=== PATIENT | male | born 1950 | race Caucasian/White ===

== ENCOUNTER 2017-04-20 10:28 | Emergency (ER) | payer MEDICARE, OTHER ==
[2017-04-20 10:53] LABS: Hematocrit 45.6 % (42.0-52.0); Mean Cell Volume 81.7 fl (78-100); Mean Corpuscular Hemoglobin 28.7 pg (27-31); Mean Corpuscular Hgb Conc 35.1 g/dl (32-36); Mean Platelet Volume 9.1 fl (6.0-9.5); Neutrophil # 3.7 K/mm3 (1.3-6.0); Neutrophil % 67.7 % (42-75.0); Platelet Count 206 K/mm3 (150-450); Red Blood Count 5.58 M/mm3 (4.7-6.0); Red Cell Distribution Width 11.9 % (11.5-14.0); White Blood Count 5.5 K/mm3 (4.0-10.5)
[2017-04-20 11:06] LABS: Anion Gap 12.9 mmol/L (6.8-13.8); BUN/Creatinine Ratio 19.6 (9.0-21.6); Bilirubin, Total 0.7 mg/dL (0.0-1.1); Ca. Corrected For Albumin 8.5 mg/dL (8.4-10.2); Calcium * 8.8 mg/dL (7.9-10.9); Carbon Dioxide 26.9 mmol/L (24-32.6); Potassium 3.8 mmol/L (3.4-4.6); Total Protein 7.5 gm/dL (6.2-8.2)
[2017-04-20 11:37] VITALS: BP 167/77
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
== END 2017-04-20 12:10 | disposition home or self-care (01) ==
LOC: ER 10:28
DX: S80.212A Abrasion, left knee, initial encounter (principal); V49.60XA Unspecified car occupant injured in collision with unspecified motor vehicles in traffic accident, initial encounter; Y92.410 Unspecified street and highway as the place of occurrence of the external cause; S60.812A Abrasion of left wrist, initial encounter; S60.811A Abrasion of right wrist, initial encounter; E78.5 Hyperlipidemia, unspecified